=== PATIENT | female | born 1935 | race Caucasian/White ===

== ENCOUNTER 2016-08-22 11:02 | Emergency (ER) | payer MEDICARE ==
[2016-08-22 11:35] VITALS: TEMP 98.3; BMI 28.1
--- NOTE | 2016-08-22 12:40 | DIRPT ---
CLINICAL DATA: Constipation for 3 days EXAM: ABDOMEN - 2 VIEW COMPARISON: July 20, 2016 FINDINGS: Supine and upright images were obtained. There is no appreciable bowel dilatation. There are scattered air-fluid levels. There is moderate stool throughout the colon. No free air. Lung bases are clear. There are scattered foci of vascular calcification in the abdomen and pelvis. IMPRESSION: Moderate stool throughout colon. Scattered air-fluid levels. Question early enteritis or ileus. Obstruction is not felt to be likely. No free air evident. Electronically Signed By: Evan Cooper III, M.D. On: 08/22/2016 12:37
[2016-08-22] MEDS ORDERED: BUBBLE GUM ENEMA 480 ML ENEMA PR ONE (12:41)
--- NOTE | 2016-08-22 12:55 | EDPRACDOC ---
- General Information Chief Complaint: Back Pain Stated Complaint: CONSTIPATION Time Seen by Provider: 08/22/16 12:18 Information Source: Patient Mode Of Arrival: Car Home Medications: Home Medications Atorvastatin Calcium [Lipitor] 40 mg PO QAM 07/20/16 Fleet Enema 4.5 oz DC TID #15 enema 07/20/16 Levothyroxine Sodium [Synthroid] 75 mcg PO DAILY 07/20/16 PEG-Electrolytes (Miralax) [Miralax] 17 gm PO DAILY #1 each 07/20/16 Allergies/Adverse Reactions: Allergies Allergy/AdvReac Type Severity Reaction Status Date / Time No Known Allergies Allergy Verified 08/22/16 11:36 - History of Present Illness Onset: TODAY HPI: PT PRESENTS TODAY WITH ABD PAIN X 3 DAYS. STATES SHE HAS NOT HAD A BM IN 3 DAYS. DENIES FEVER, N/V/D, DYSURIA. THIS HAS HAPPENED TO PT ABOUT 1 MONTH AGO AND PT NEEDED 2 ENEMAS. PT STATES SHE TRIED 2 FLEET ENEMAS AT HOME W/OUT RELIEF. Pain Location: Reports: Diffuse Pain Context: Reports: With Constipation Pain Severity: Moderate Pain Quality: Reports: Cramping Pain Radiation: Reports: No Radiation Adult Abdominal History: Reports: Similar Pain (dx) Modifying Factors: improves with: Movement Oral Intake: Decreased Urinary Output: Normal ED Past Medical History - History Reviewed Yes Nurses notes reviewed and agree except as marked - Patient Medical History Neurological History: Reports: Dementia Psychological History: Denies: Depression - Social Medical History Smoking Status: Never smoker EDM Review of Systems - Review of Systems ROS Negative Except as Marked: Yes All systems reviewed and were negative except as marked Constitutional: No Symptoms Reported Respiratory: No Symptoms Reported Cardiovascular: No Symptoms Reported Gastrointestinal: Constipation, Pain Genitourinary: No Symptoms Reported Neurological: No Symptoms Reported Musculoskeletal: No Symptoms Reported Integumentary: No Symptoms Reported - Physical Exam Constitutional: Alert (Awake), No apparent distress Oriented to: Time, Person, Place Last recorded Vital Signs: Last Vital Signs Temp 98.3 F 08/22/16 11:30 Pulse 76 08/22/16 14:06 Resp 18 08/22/16 14:06 BP 142/65 08/22/16 14:06 Pulse Ox 96 08/22/16 14:06 Oxygen Pulse Oxygen Saturation 96 O2 Device Room Air Oxygen Flow Rate Fraction of Inspired Oxygen ( FIO2) - HEENT Head: Normal Eye Exam: Normal Neck: Normal, Denies Pain, Midline - Respiratory/Cardiovascular Respiratory: Normal - CTA Cardiovascular: Normal - GI Auscultation: Absent Palpation: Other (TENSE; FIRM) Tenderness: Diffuse, Moderate - Musculoskeletal Back: Normal Extremities: Normal - Integumentary Skin: Normal Lymphatics: Normal - Neurologic Cerebellar: Normal Mood Description: Normal Thought: Coherent Perception: Normal - Re-evaluation Re-evaluation 1 Re-evaluation Time: 13:35 SMALL AMOUNT OF STOOL PRODUCED; MINIMAL RELIEF. Re-evaluation 2 Re-evaluation Time: 14:09 GOOD BOWEL MOVEMENT. FEELS MUCH BETTER AND IS NOW HUNGRY. STATES SHE'S READY TO GO HOME. Decision Time to Discharge: 14:09 - Departure Disposition: Home Condition: Improved Final Diagnosis: Constipation Qualifiers: Constipation type: unspecified constipation type Qualified Code(s): K59.00 - Constipation, unspecified Instructions: High Fiber Diet (ED), Constipation (ED) Education/Counseling Given To: Patient Education/Counseling Given Regarding: Diagnosis, Treatment, Follow Up Referrals: Igor Hagan MD [Primary Care Provider] - One Week Additional Instructions: INCREASE WATER/FIBER INTAKE.
[2016-08-22 14:07] VITALS: BP 142/65; PULSE 76
== END 2016-08-22 14:27 | disposition home or self-care (01) ==
LOC: ED 11:02 → EDMC 14:27
DX: K59.00 Constipation, unspecified (principal)
CPT/HCPCS: 74020; 99283; A9270; J3490